=== PATIENT | male | born 1960 | race Caucasian/White ===

== ENCOUNTER → 2020-01-16 | Outpatient (CLI) | payer BC | END | disposition home or self-care (01) | LOC: RAH 01-15 08:29 | PROVIDERS: ATTEND Family Medicine | DX: N28.1 Cyst of kidney, acquired (principal) | CPT/HCPCS: 76700 ==

== ENCOUNTER 2021-09-24 06:24 | Day surgery (SDC) | payer BC ==
[2021-09-23 13:53] VITALS: BP 109/63
[~2021-09-24] VITALS: Ht 162.6 cm; Wt 69.4 kg
[2021-09-24] VITALS (15 sets, daily range): BP systolic 110–125; BP diastolic 65–80
[~2021-09-24 06:24] MED LIST: CEFTRIAXONE 1G VIAL IVP SCH; TAMS-1 PO; TELM40TA8 PO; VITAD50000 PO
[2021-09-24] MEDS ORDERED: LACTATED RINGERS 1000ML 1,000 ML IV ONE (06:55)
[2021-09-24] MEDS ORDERED: ROCURONIUM 10MG/1ML SYR 10 MG/ML ML ONE (07:33)
[2021-09-24] MEDS ORDERED: MIDAZOLAM HCL 1 MG/ML 2ML VIAL ONE (07:33)
[2021-09-24] MEDS ORDERED: PROPOFOL 10 MG/ML 20ML VIAL IV ONE (07:33)
[2021-09-24] MEDS ORDERED: LIDOCAINE PF 100MG/5ML (2%) SYRINGE 5ML ONE (07:33)
[2021-09-24] MEDS ORDERED: ONDANSETRON 4MG INJ ONE (07:33)
[2021-09-24] MEDS ORDERED: FENTANYL CITRATE PF 50 MCG/1 ML 2ML VIAL ONE (07:34)
[2021-09-24] MEDS ORDERED: IOHEXOL-350 50ML VIAL IV ONE (08:07)
[2021-09-24] MEDS ORDERED: EPHEDRINE SULFATE 50 MG/ML AMPULE ONE (08:47)
[2021-09-24] MEDS ORDERED: GLYCOPYRROLATE 1 MG/5 ML SYRINGE ONE (08:55)
[2021-09-24] MEDS ORDERED: NEOSTIGMINE 5MG/5ML SYR IV ONE (08:55)
[2021-09-24] MEDS ORDERED: PHENAZOPYRIDINE HCL 200 MG TABLET ONE (09:55)
== END 2021-09-24 10:20 | disposition home or self-care (01) ==
LOC: DAH 06:24
PROVIDERS: ATTEND Urology
DX: N13.2 Hydronephrosis with renal and ureteral calculous obstruction (principal); Z20.822 Contact with and (suspected) exposure to COVID-19; I10 Essential (primary) hypertension; Z98.890 Other specified postprocedural states; Z79.899 Other long term (current) drug therapy
CPT/HCPCS: 36415; 52320; 52332; 74420; 82360; 87635; A4215; A4221; A4222; A4223; A4344; A4354; A4358; A4510; A4600; A4663; A4930; C1758; C1769; C2617; C9803; J0696; J2001; J2250; J2405; J2704; J2710; J3010; J3490 ×2; J7120; Q9967

== ENCOUNTER 2022-10-28 20:07 | Emergency (ER) | payer BC, OTHER ==
[~2022-10-28] VITALS: Ht 162.6 cm; Wt 73.5 kg
[~2022-10-28 20:07] MED LIST changes: -CEFTRIAXONE 1G VIAL IVP SCH
[2022-10-28] MEDS ORDERED: SOLU-MEDROL 40MG VIAL IJ ONE (22:00)
[2022-10-28] MEDS ORDERED: METH4TAB3 PO (23:03)
[2022-10-28 23:14] VITALS: BP 142/67
== END 2022-10-28 23:30 | disposition home or self-care (01) ==
LOC: EDH 20:07
DX: S00.93XA Contusion of unspecified part of head, initial encounter (principal); I10 Essential (primary) hypertension; Z87.442 Personal history of urinary calculi; Z79.899 Other long term (current) drug therapy; Z98.890 Other specified postprocedural states; Y08.89XA Assault by other specified means, initial encounter; Y93.89 Activity, other specified; Y92.89 Other specified places as the place of occurrence of the external cause; Y99.8 Other external cause status
CPT/HCPCS: 99283; 96374; J2920

== ENCOUNTER → 2024-02-07 | Outpatient (CLI) | payer BC ==
[~2024-02-07] MED LIST changes: +CEPH500B PO; +METH4TAB3 PO
== END | disposition home or self-care (01) ==
LOC: RAH 12:40
PROVIDERS: ATTEND Urology
DX: N13.2 Hydronephrosis with renal and ureteral calculous obstruction (principal); N28.1 Cyst of kidney, acquired; N40.0 Benign prostatic hyperplasia without lower urinary tract symptoms
CPT/HCPCS: 76770

== ENCOUNTER 2024-03-08 09:09 | Day surgery (SDC) | payer BC ==
[2024-03-07 10:47] LABS: BASOPHILS # (AUTO) 0.03 K/uL (0.00-0.20); BASOPHILS % (AUTO) 0.4 % (0.0-5.0); EOSINOPHILS # (AUTO) 0.17 K/uL (0.00-0.70); EOSINOPHILS % (AUTO) 2.5 % (0.0-8.0); HEMATOCRIT 43.9 % (42-54); IMMATURE GRANULOCYTE ABSOLUTE 0.03 K/uL (0-1); LYMPHOCYTES # (AUTO) 2.1 K/uL (1.0-4.8); LYMPHOCYTES % (AUTO) 30.1 % (21.0-51.0); MEAN CORPUSCULAR HGB CONC 33.7 g/dL (32.0-36.0); MEAN CORPUSCULAR VOLUME 88.9 fL (79-99); MONOCYTES # (AUTO) 0.6 K/uL (0.1-1.0); NEUTROPHILS % (AUTO) 58.6 % (40.0-77.0); PLATELET COUNT (AUTO) 206 K/uL (130-400); RED BLOOD CELL COUNT(AUTO) 4.94 MIL/uL (4.50-6.20); RED CELL DISTRIBUTION WIDTH 12.9 % (11.0-15.5); WHITE BLOOD COUNT (AUTO) 6.8 K/uL (4.8-10.8)
[2024-03-07 10:54] LABS: CREATININE 1.1 mg/dL (0.5-1.3); POTASSIUM 4.4 mmol/L (3.5-5.1)
[2024-03-07 11:13] VITALS: BP 134/72; PULSE 90; RESP 16
[~2024-03-08] VITALS: Ht 165.1 cm; Wt 74.4 kg
[2024-03-08] VITALS (18 sets, daily range): BP systolic 108–126; BP diastolic 63–81; PULSE 54–77; RESP 10–18
[~2024-03-08 09:09] MED LIST changes: -CEPH500B PO; +FINA5TAB41 PO; -METH4TAB3 PO; +TELM40 PO; -TELM40TA8 PO; -VITAD50000 PO
[2024-03-08] MEDS ORDERED: CEFTRIAXONE 1G VIAL ONE (09:22)
[2024-03-08] MEDS ORDERED: LIDOCAINE PF 100MG/5ML (2%) SYRINGE 5ML ONE (11:20)
[2024-03-08] MEDS ORDERED: DEXAMETHASONE SOD PHOSPHATE 10MG/ML 1ML VIAL ONE (11:20)
[2024-03-08] MEDS ORDERED: MIDAZOLAM HCL 1 MG/ML 2ML VIAL ONE (11:21)
[2024-03-08] MEDS ORDERED: GLYCOPYRROLATE 0.2 MG/ML 5 ML VIAL ONE ×2 (11:22→13:44)
[2024-03-08] MEDS ORDERED: PROPOFOL 10 MG/ML 20ML VIAL IV ONE (11:22)
[2024-03-08] MEDS ORDERED: NEOSTIGMINE METHYLSULFATE 1MG/ML IV ONE (11:22)
[2024-03-08] MEDS ORDERED: ONDANSETRON 4MG INJ ONE (11:22)
[2024-03-08] MEDS ORDERED: SUCCINYLCHOLINE CHLORIDE 20 MG/ML 10 ML VIAL ONE (11:22)
[2024-03-08] MEDS ORDERED: FENTANYL CITRATE PF 50 MCG/1 ML 2ML VIAL ONE ×3 (11:23→13:58)
[2024-03-08] MEDS ORDERED: ROCURONIUM BROMIDE 10MG/1ML 5ML VL ONE (11:23)
[2024-03-08] MEDS: IOHEXOL-300 50 ML VIAL IV ONE (12:55)
[2024-03-08] MEDS: LACTATED RINGERS 1000ML 1,000 ML IV ONE (13:51)
[2024-03-08] MEDS: PHENAZOPYRIDINE HCL 200 MG TABLET PO ONE (15:56)
== END 2024-03-08 16:35 | disposition home or self-care (01) ==
LOC: DAH 09:09
PROVIDERS: ATTEND Urology
DX: N13.2 Hydronephrosis with renal and ureteral calculous obstruction (principal); N32.89 Other specified disorders of bladder; N40.0 Benign prostatic hyperplasia without lower urinary tract symptoms; I10 Essential (primary) hypertension; Z79.899 Other long term (current) drug therapy; Z79.01 Long term (current) use of anticoagulants; Z98.890 Other specified postprocedural states
CPT/HCPCS: 80048; 85025; 36415; 52332; 74420; A4663; J7120 ×2; A4314; C1769 ×3; A4354; C1758; C2617; J3010 ×3; J1100; J0330; J3490 ×3; J2001; J0696; J2250; J2704; J2405; J2710; Q9967; A4358; A4215; A4223; A4213; A4222; A4221; A4600; A4510; A5113

== ENCOUNTER 2024-03-29 05:50 | Day surgery (SDC) | payer BC ==
[2024-03-27 15:18] VITALS: BP 104/75; PULSE 79; RESP 18
[2024-03-27 15:44] LABS: BASOPHILS # (AUTO) 0.03 K/uL (0.00-0.20); BASOPHILS % (AUTO) 0.4 % (0.0-5.0); EOSINOPHILS # (AUTO) 0.13 K/uL (0.00-0.70); EOSINOPHILS % (AUTO) 1.7 % (0.0-8.0); HEMATOCRIT 37.9 % (42-54); IMMATURE GRANULOCYTE ABSOLUTE 0.03 K/uL (0-1); LYMPHOCYTES # (AUTO) 1.8 K/uL (1.0-4.8); LYMPHOCYTES % (AUTO) 22.7 % (21.0-51.0); MEAN CORPUSCULAR VOLUME 88.1 fL (79-99); MONOCYTES # (AUTO) 0.7 K/uL (0.1-1.0); MONOCYTES % (AUTO) 8.7 % (3.0-13.0); NEUTROPHILS # (AUTO) 5.1 K/uL (1.8-7.7); NEUTROPHILS % (AUTO) 66.1 % (40.0-77.0); PLATELET COUNT (AUTO) 233 K/uL (130-400); RED CELL DISTRIBUTION WIDTH 13.3 % (11.0-15.5); WHITE BLOOD COUNT (AUTO) 7.7 K/uL (4.8-10.8)
[2024-03-29] VITALS (16 sets, daily range): BP systolic 112–137; BP diastolic 70–83; PULSE 55–69; RESP 12–18
[~2024-03-29] VITALS: Ht 165.1 cm; Wt 73.4 kg
[2024-03-29] MEDS ORDERED: CEFTRIAXONE 1G VIAL ONE (06:16)
[2024-03-29] MEDS: LACTATED RINGERS 1000ML 1,000 ML IV ONE (06:20)
[2024-03-29] MEDS ORDERED: ONDANSETRON 4MG INJ ONE (07:00)
[2024-03-29] MEDS ORDERED: MIDAZOLAM HCL 1 MG/ML 2ML VIAL ONE (07:00)
[2024-03-29] MEDS ORDERED: PROPOFOL 10 MG/ML 20ML VIAL IV ONE (07:01)
[2024-03-29] MEDS ORDERED: ROCURONIUM BROMIDE 10MG/1ML 5ML VL ONE (07:01)
[2024-03-29] MEDS ORDERED: FENTANYL CITRATE PF 50 MCG/1 ML 2ML VIAL ONE (07:01)
[2024-03-29] MEDS ORDERED: PHENYLEPHRINE HCL 10 MG/ML 1ML VIAL IV ONE (07:37)
[2024-03-29] MEDS: PHENAZOPYRIDINE HCL 200 MG TABLET ONE (10:05)
== END 2024-03-29 10:55 | disposition home or self-care (01) ==
LOC: DAH 05:50
PROVIDERS: ATTEND Urology
DX: N13.2 Hydronephrosis with renal and ureteral calculous obstruction (principal); N13.1 Hydronephrosis with ureteral stricture, not elsewhere classified; N40.1 Benign prostatic hyperplasia with lower urinary tract symptoms; R33.8 Other retention of urine; I10 Essential (primary) hypertension; K21.9 Gastro-esophageal reflux disease without esophagitis; Z79.899 Other long term (current) drug therapy; Z98.890 Other specified postprocedural states
CPT/HCPCS: 85025; 36415 ×2; 52356; 82360; 74018; 52320; A6260; A4663; J7120 ×2; A4354; C1758; C2617; J3010; J3490; J0696; J2250; J2704; J2405; J2371; A4358; C1769; A4215; A4223; A4222; A4221; A4510; A4600

== ENCOUNTER 2024-06-28 07:56 | Day surgery (SDC) | payer BC ==
[2024-06-26 12:16] LABS: BASOPHILS # (AUTO) 0.03 K/uL (0.00-0.20); BASOPHILS % (AUTO) 0.5 % (0.0-5.0); EOSINOPHILS # (AUTO) 0.16 K/uL (0.00-0.70); EOSINOPHILS % (AUTO) 2.4 % (0.0-8.0); HEMATOCRIT 41.8 % (42-54); IMMATURE GRANULOCYTE ABSOLUTE 0.04 K/uL (0-1); LYMPHOCYTES % (AUTO) 30.7 % (21.0-51.0); MEAN CORPUSCULAR HEMOGLOBIN 29.5 pg (27.0-33.0); MEAN CORPUSCULAR VOLUME 89.3 fL (79-99); MONOCYTES # (AUTO) 0.6 K/uL (0.1-1.0); MONOCYTES % (AUTO) 9.4 % (3.0-13.0); NEUTROPHILS # (AUTO) 3.7 K/uL (1.8-7.7); NEUTROPHILS % (AUTO) 56.4 % (40.0-77.0); PLATELET COUNT (AUTO) 255 K/uL (130-400); RED BLOOD CELL COUNT(AUTO) 4.68 MIL/uL (4.50-6.20); RED CELL DISTRIBUTION WIDTH 12.9 % (11.0-15.5); WHITE BLOOD COUNT (AUTO) 6.6 K/uL (4.8-10.8)
[2024-06-26 12:22] VITALS: BP 111/79; PULSE 67; RESP 16
[2024-06-26 12:28] LABS: POTASSIUM 4.1 mmol/L (3.5-5.1)
[~2024-06-28] VITALS: Ht 165.1 cm; Wt 74.6 kg
[2024-06-28] VITALS (18 sets, daily range): BP systolic 111–129; BP diastolic 63–78; PULSE 55–71; RESP 12–19
[2024-06-28] MEDS ORDERED: FAMOTIDINE 20MG VIAL IV ONE (09:35)
[2024-06-28] MEDS ORDERED: ACETAMINOPHEN 1,000 MG/100 ML VIAL IV ONE (09:35)
[2024-06-28] MEDS: LACTATED RINGERS 1000ML 1,000 ML IV ONE (09:37)
[2024-06-28] MEDS: CEFTRIAXONE 1G VIAL ONE (09:37)
[2024-06-28] MEDS ORDERED: KETAMINE 50MG/ML SYRINGE 50 MG/ML DISP.SYRIN ONE (09:37)
[2024-06-28] MEDS ORDERED: LIDOCAINE PF 100MG/5ML (2%) SYRINGE 5ML ONE (09:42)
[2024-06-28] MEDS ORDERED: ROCURONIUM BROMIDE 10MG/1ML 5ML VL ONE (09:42)
[2024-06-28] MEDS ORDERED: PROPOFOL 10 MG/ML 20ML VIAL IV ONE (09:42)
[2024-06-28] MEDS ORDERED: FENTANYL CITRATE PF 50 MCG/1 ML 2ML VIAL ONE (09:43)
[2024-06-28] MEDS ORDERED: ONDANSETRON 4MG INJ ONE (10:09)
[2024-06-28] MEDS ORDERED: DEXAMETHASONE SOD PHOSPHATE 10MG/ML 1ML VIAL ONE (10:09)
[2024-06-28] MEDS ORDERED: GLYCOPYRROLATE 0.2 MG/ML 5 ML VIAL ONE (11:07)
[2024-06-28] MEDS ORDERED: NEOSTIGMINE METHYLSULFATE 1MG/ML IV ONE (11:07)
[2024-06-28] MEDS: PHENAZOPYRIDINE HCL 200 MG TABLET PO ONE (14:23)
== END 2024-06-28 14:05 | disposition home or self-care (01) ==
LOC: DAH 07:56
PROVIDERS: ATTEND Urology
DX: N40.1 Benign prostatic hyperplasia with lower urinary tract symptoms (principal); N41.1 Chronic prostatitis; I10 Essential (primary) hypertension; E78.5 Hyperlipidemia, unspecified; Z79.899 Other long term (current) drug therapy
CPT/HCPCS: 80048; 85025; 36415; 52648; 88305; A6260; A4663; J7120 ×2; A4354; J3490 ×4; J3010; J1100; J2001; J0696; J2704; J2405; J2710; A4358; A4215; A4223; A4222; A4221; A4510; A4600